=== PATIENT | female | born 1945 | race Caucasian/White ===

== ENCOUNTER 2017-08-13 14:35 | Emergency (ER) | END 2017-08-13 19:53 | disposition home or self-care (01) ==

== ENCOUNTER 2019-05-13 13:47 | Emergency (ER) | payer SELFPAY ==
[~2019-05-13] VITALS: Ht 160 cm; Wt 82.1 kg
[~2019-05-13 13:47] MED LIST: ALPR0.5T PO; CEPH-443 PO; HYDR-4011 PO; LEVO100T8 PO; LEVO500T10 PO; MAGN296S40 PO; METH500T PO; NAPR-688 PO; POLY17PO6 PO; SUCR1TAB56 PO
[2019-05-13 14:03] VITALS: Ht 160 cm; Wt 82.1 kg
[2019-05-13] MEDS ORDERED: CEFTRIAXONE 1 GM/50 ML (PMX) 50 ML IVPB ONE (16:30)
[2019-05-13] MEDS ORDERED: ONDANSETRON 4 MG INJ IV STA (16:32)
[2019-05-13] MEDS ORDERED: morphine 2 MG INJ IV STA (16:32)
[2019-05-13 17:56] VITALS: BP 118/63; PULSE 88; RESP 14
== END 2019-05-13 18:03 | disposition home or self-care (01) ==
LOC: E/R 13:47
DX: N12 Tubulo-interstitial nephritis, not specified as acute or chronic (principal); E03.9 Hypothyroidism, unspecified
CPT/HCPCS: 36415; 76775; 80053; 81001; 83605; 83690; 85025; 87040; 87086; 96374; 96375; 99285; J0696; J2270; J2405